=== PATIENT | male | born 1960 | race Caucasian/White ===

== ENCOUNTER 2022-03-16 07:25 | Outpatient (CLI) | payer BC | END 2022-03-16 07:26 | disposition home or self-care (01) | LOC: CSHCT 07:25 | PROVIDERS: ATTEND Internal Medicine Cardiovascular Disease | DX: I71.2 Thoracic aortic aneurysm, without rupture (principal); K76.9 Liver disease, unspecified; K76.89 Other specified diseases of liver | CPT/HCPCS: 71275; 82565 ==